=== PATIENT | male | born 2000 | race Two or more races ===

== ENCOUNTER 2021-03-17 15:50 | Emergency (ER) | payer MEDICAID ==
[~2021-03-17] VITALS: Ht 175.3 cm; Wt 108.9 kg
[2021-03-17 16:37] LABS: Basophils # (auto) 0.1 10 ^3/uL (0-0.2); Basophils % (auto) 0.7 % (0.0-2.0); Eosinophils # (auto) 0 10 ^3/uL (0-0.8); Eosinophils % (auto) 0.2 % (0.0-7.0); Hemoglobin 16.7 g/dL (13.5-17.5); Lymphocytes # (auto) 2.1 10 ^3/uL (0.4-5.4); Lymphocytes % (auto) 14.5 % (10.0-50.0); Mean Corpuscular Hemoglobin 28.7 pg (28.0-32.0); Mean Corpuscular Volume 84.5 fL (80.0-100.0); Monocytes # (auto) 0.6 10 ^3/uL (0-1.3); Neutrophils # (auto) 11.7 10 ^3/uL (1.6-8.6); Neutrophils % (auto) 80.6 % (37.0-80.0); Nucleated Red Blood Cells % 0.1 %; Red Cell Distribution Width 14.1 % (11.8-14.3); White Blood Cell 14.5 10^3/uL (4.4-10.8)
[2021-03-17] MEDS ORDERED: DexAMETHasone SOD PHOS 10MG/1ML VIAL INJ IV ONE (16:45)
[2021-03-17] MEDS ORDERED: cefTRIAXone 1GM/50ML D5W 50 ML IV ONE (16:45)
[2021-03-17 18:02] LABS: Albumin 4.8 g/dL (3.4-5.0); Anion Gap 8 (5-15); Blood Urea Nitrogen 6 mg/dL (7-18); Calcium 9.3 mg/dL (8.5-10.1); Carbon Dioxide 20 mmol/L (21-32); Chloride 111 mmol/L (98-107); Glucose 123 mg/dL (74-106); Potassium 3.7 mmol/L (3.5-5.1); Sodium 139 mmol/L (136-145)
[2021-03-17 18:10] LABS: Alanine Aminotransferase 117 U/L (16-61); Alkaline Phosphatase 101 U/L (45-117); Aspartate Aminotransferase 53 U/L (15-37); BUN/Creatinine Ratio 6.5; Bilirubin, Total 0.5 mg/dL (0.2-1.0); GFR African American 135 mL/min; GFR Non-African American 111 mL/min; Total Protein 8.4 g/dL (6.4-8.2)
[2021-03-17 19:39] LABS: Lactic Acid w/Reflex 2.9 mmol/L (0.4-2.0)
[2021-03-17 19:51] VITALS: BP 142/75
[2021-03-17 20:33] LABS: Urine Bacteria NONE SEEN /hpf (None Seen); Urine Blood Negative /uL (Negative); Urine Specific Gravity 1.026 (1.001-1.035); Urine WBC <1 /hpf (0 - 3)
== END 2021-03-17 20:43 | disposition admitted as inpatient to this hospital (09) ==
LOC: ER 15:50
DX: J18.9 Pneumonia, unspecified organism (principal); Z20.822 Contact with and (suspected) exposure to COVID-19
CPT/HCPCS: 36415; 71045; 80053; 81001; 82728; 83605; 84484; 85025; 85379; 86141; 87040; 87426; 93005; 99291

== ENCOUNTER 2022-05-19 09:37 | Emergency (ER) | payer MEDICAID ==
[~2022-05-19] VITALS: Ht 172.7 cm; Wt 115.0 kg
[2022-05-19 10:25] VITALS: BP 169/114
[2022-05-19] MEDS ORDERED: KETOROLAC TROMETH 60MG/2ML VIAL IM ONE (10:45)
[2022-05-19] MEDS ORDERED: IBUP800T26 PO (10:45)
== END 2022-05-19 10:46 | disposition home or self-care (01) ==
LOC: ER 09:37
DX: S20.213A Contusion of bilateral front wall of thorax, initial encounter (principal); W22.8XXA Striking against or struck by other objects, initial encounter; Y93.89 Activity, other specified; Y92.89 Other specified places as the place of occurrence of the external cause; Y99.8 Other external cause status
CPT/HCPCS: 71045

== ENCOUNTER 2024-05-10 14:30 | Inpatient (IN) | payer MEDICAID ==
[~2024-05-10] VITALS: Ht 172.7 cm; Wt 112.0 kg
[~2024-05-10 14:30] MED LIST: IBUP-1455 PO
--- NOTE | 2024-05-10 15:05 | ECG ---
[facility] Test Date: 2024-05-10 Test Time: 15:00:20 Pat Name: EDUARDO HEREDIA Department: ER Room: 0290 Gender: M Credit Collections Rep: ANGIE : 2000 Requested By: BETHEL MONZON Order Number: [id number] Reading MD: Dev Dunbar Measurements Intervals [place] Rate: 119 P: 88 SD: 156 QRS: 96 QRSD: 87 T: 2 QT: 338 QTc: 476 Interpretive Statements Sinus tachycardia Borderline right axis deviation ST elev, probable normal early repol pattern Borderline prolonged QT interval Electronically Signed On 05-12-2024 10:26:03 PST by Dev Dunbar Please click the below link to view image of tracing.
--- NOTE | 2024-05-10 15:18 | DVH ---
CHEST RADIOGRAPH Indication: CP Technique: Single frontal view of the chest was obtained Comparison: CHEST PORTABLE on DOS: 05/19/22, CXRP on DOS: 05/19/22 FINDINGS: Lines and Tubes: None Lungs: No focal consolidation. Pleura: No effusion.No pneumothorax. Cardiomediastinal contours: Unremarkable Pulmonary vasculature: Within normal limits. Bones: No acute osseous abnormality. IMPRESSION: 1. No acute cardiopulmonary disease. HS:Y
[2024-05-10 15:52] LABS: Basophils # (auto) 0.1 10 ^3/uL (0-0.2); Basophils % (auto) 0.6 % (0.0-2.0); Eosinophils # (auto) 0 10 ^3/uL (0-0.8); Eosinophils % (auto) 0.3 % (0.0-7.0); Hematocrit 51.7 % (41.0-53.0); Lymphocytes # (auto) 1.7 10 ^3/uL (0.4-5.4); Mean Corpuscular Hgb Conc. 32.9 g/dL (32.0-36.0); Mean Corpuscular Volume 88.2 fL (80.0-100.0); Monocytes # (auto) 0.6 10 ^3/uL (0-1.3); Monocytes % (auto) 5.1 % (0.0-12.0); Neutrophils # (auto) 10.4 10 ^3/uL (1.6-8.6); Nucleated Red Blood Cells % 0.1 %; Platelet Count (auto) 298 10^3/uL (140-450); Red Blood Cells 5.87 10^6/uL (4.5-5.90); Red Cell Distribution Width 14.2 % (11.8-14.3); White Blood Cell 12.8 10^3/uL (4.4-10.8)
[2024-05-10 16:06] LABS: Anion Gap 22.00001 (5-15); BUN/Creatinine Ratio 9.3 (10.0-20.0); Blood Urea Nitrogen 17 mg/dL (9-23); Calcium 10.2 mg/dL (8.7-10.4)
[2024-05-10 16:07] LABS: Total Protein 7.9 g/dL (5.7-8.2)
[2024-05-10 16:17] LABS: Urine Bacteria None Seen /hpf (None Seen)
[2024-05-10 16:22] LABS: Alanine Aminotransferase 96 U/L (7-40); Albumin 5.2 g/dL (3.2-4.8); Alkaline Phosphatase 176 U/L (46-116); Aspartate Aminotransferase 75 U/L (13-40); Chloride 90 mmol/L (98-107); Potassium 5.5 mmol/L (3.5-5.1); Sodium 122 mmol/L (136-145)
[2024-05-10] MEDS: INSULIN LANTUS (GLARGINE) 1 /0.01ml (100units/ml) SC ONE ×2 (16:30→19:15)
[2024-05-10] MEDS: ACCU-CHEK COMFORT CURVE STRIP VI SCH ×2 (16:30→19:30)
[2024-05-10] MEDS: SODIUM CHLORIDE 0.9% 1,000 ML IV ONE (16:30)
[2024-05-10] MEDS: INSULIN DRIP 100 UNIT/100ML 100 ML IV SCH ×2 (16:30→22:32)
[2024-05-10] MEDS ORDERED: DEXTROSE (50%) 50ML SYRG IV PRN ×2 (16:30→19:15)
[2024-05-10] MEDS: InsuLIN REG 1unit/0.01ml Soln (100units/ml) IV ONE (16:30)
[2024-05-10 16:34] LABS: Urine Blood Negative /uL (Negative); Urine Clarity Clear (Clear); Urine Color Colorless (Yellow); Urine Mucus FEW (None Seen); Urine Protein, UAD TRACE (Negative); Urine Specific Gravity 1.031 (1.001-1.035); Urine Urobilinogen Normal (Negative); Urine WBC <1 /hpf (0 - 3)
[2024-05-10 16:35] LABS: Carbon Dioxide < 10 mmol/L (20-31); Glucose 823 mg/dL (74-106)
--- NOTE | 2024-05-10 16:37 | ED.PDOC ---
History of Present Illness HPI Comments This is a 23-year-old male who comes in with chief complaint palpitations as well as some burning on his chest. The patient states that the symptoms have been going on for two weeks. He has never had a history of this in the past. He states that the pain is a 10/10. He has had an increased amount of thirst as well as urine output. The patient also has had some mild shortness for breath. He has no history of diabetes in the past but is experiencing some Kussmaul breathing. Chief Complaint: Chest Pain Time Seen by MD: 15:07 Primary Care Provider: NONE Reviewed Notes: Nurses Notes, Medications, Allergies (No allergies to medications) Allergies: Coded Allergies: NO KNOWN ALLERGIES (Unverified , 03/17/21) Home Meds Active Scripts Ibuprofen Micronized (Ibuprofen) 800 Mg Tab, 800 MG PO TIDP PRN, #30 TAB Prov:CHRIS WERNER PAC 05/19/22 Information Source: Patient Mode of Arrival: Ambulatory Severity: Moderate Timing: Weeks (Two weeks) Duration: Since onset Prehospital treatment: None Associated signs and symptoms Polyuria and polydipsia with burning in the chest Past Medical History PAST MEDICAL HISTORY: Denies Surgical History: Denies all surgeries Family History Family History: Reviewed,noncontributory to illness Social History Smoker: Non-Smoker Alcohol: Occasionally Drugs: Marijuana Lives In: Home Constitutional: denies: chills, diaphoresis, fatigue, fever, malaise, sweats, weakness, others EENTM: denies: blurred vision, double vision, ear bleeding, ear discharge, ear drainage, ear pain, ear ringing, eye pain, eye redness, hearing loss, mouth andree n, mouth swelling, nasal discharge, nose bleeding, nose congestion, nose pain, photophobia, tearing, throat pain, throat swelling, voice changes, others Respiratory: denies: cough, hemoptysis, orthopnea, SOB at rest, shortness of breath, SOB with excertion, stridor, wheezing, others Cardiovascular: reports: chest pain (Burning chest pain), palpitations; denies: dizzy spells, diaphoresis, Dyspnea on exertion, edema, irregular heart beat, left arm pain, lightheadedness, PND, syncope, others Gastrointestinal: reports: nausea, vomiting; denies: abdomen distended, abdominal pain, blood streaked bowels, constipated, diarrhea, dysphagia, difficulty swallowing, hematemesis, melena, poor appetite, poor fluid intake, rectal bleeding, rectal pain, others Genitourinary: denies: burning, dysuria, flank pain, frequency, hematuria, incontinence, penile discharge, penile sore, pain, testicle pain, testicle swelling, urgency, others Neurological: denies: dizziness, fainting, headache, left sided numbness, left sided weakness, numbness, paresthesia, pre-existing deficit, right sided numb ness, right sided weakness, seizure, speech problems, tingling, tremors, weakness, others Musculoskeletal: denies: back pain, gout, joint pain, joint swelling, muscle pain, muscle stiffness, neck pain, others Integumetry: denies: bruises, change in color, change in hair/nails, dryness, laceration, lesions, lumps, rash, wounds, others Allergic/Immunocompromised: denies: Difficulty Healing, Frequent Infections, Hives, Itching, others Hematologic/Lymphatic: denies: anemia, blood clots, easy bleeding, easy bruising, swollen glands, others Endocrine: reports: excessive thirst, excessive urination; denies: excessive hunger, excessive sweating, flushing, intolerance to cold, intolerance to heat, unexplained weight gain, unexplained weight loss, others Psychiatric: denies: anxiety, bipolar disorder, depression, hopeless, panic disorder, schizophrenia, sleepless, suicidal, others Physical Exam General Appearance: Mild Distress HEENT: Normal ENT Inspection, Pharynx Normal, TMs Normal Neck: Full Range of Motion, Non-Tender, Normal, Normal Inspection Respiratory: Chest Non-Tender, Lungs Clear, No Accessory Muscle Use, No Respira tory Distress, Normal Breath Sounds Cardiovascular: No Edema, No JVD, No Murmur, No Gallop, Tachycardia Breast Exam: Deferred Gastrointestinal: No Organomegaly, Non Tender, No Pulsatile Mass, Normal Bowel Sounds, Soft Genitalia: Deferred Pelvic: Deferred Rectal: Deferred Extremities: No calf tenderness, Normal capillary refill, Normal inspection, Normal range of motion, Non-tender, No pedal edema Musculoskeletal : Apperance: Normal Neurologic: Alert, high scaler II-XII nml as Tested, No Motor Deficits, Normal Affect, Normal Mood, No Sensory Deficits Cerebellar Function: Normal Reflexes: Normal Skin: Dry, Normal Color, Warm Lymphatic: No Adenopathy Was a procedure done? Was a procedure done?: No EKG EKG : Pulse Rate (adult): 119 [place]: Normal Cardiac Rhythm: ST Block: None ST: Nonsp Differential Dx Considerations may include: DKA, electrolyte imbalance, UTI, generalized weakness X-Ray, Labs, Meds, VS Vital Signs Date Time Temp Pulse Resp B/P (MAP) Pulse Ox O2 Delivery O2 Flow Rate FiO2 05/10/24 16:37 119 05/10/24 15:41 120 05/10/24 15:08 119 05/10/24 15:04 98.0 131 16 145/101 (116) 98 Lab Test 05/10/24 18:03 05/10/24 16:50 05/10/24 16:47 05/10/24 16:35 Range/Units POC Glucose 588 *H > 600 *H 70-106 mg/dl Blood Gas Specimen Type Arterial Blood Gas Sample Site Right radial Blood Gas Patient Temperature 37.0 Arterial Blood Date Drawn [id number] Arterial Blood pH 7.270 L 7.350-7.450 Arterial Blood Partial Pressure CO2 19.9 *L 35.0-48.0 mmHg Arterial Blood Partial Pressure O2 99.6 83.0-108.0 mmHg Arterial Blood HCO3 8.9 L 21.0-28.0 mmol/L Arterial Blood Oxygen Saturation 97.2 94.0-98.0 % Arterial Blood Base Excess -15.1 L -2.0-3.0 mmol/L Arterial Blood Oxyhemoglobin 96.1 94.0-98.0 % Arterial Blood Carboxyhemoglobin 0.4 L 0.5-1.5 % Arterial Blood Methemoglobin 0.7 0.0-1.5 % Sourav Test Yes Blood Gas Total Hemoglobin 18.00 H 13.5-17.5 g/dL Blood Gas Modality Room air FiO2 % 21.0 Blood Gas Critical Value Read Back Yes Blood Gas Notified Whom Dr. rena brown Blood Gas Notified Time [id number] Blood Gas Notified By Refinery Operator Reforming Unit kaushik askew Troponin I High Sensitivity < 3 L </=54 ng/L Test 05/10/24 16:15 05/10/24 15:30 Range/Units Urine Color Colorless Yellow Urine Clarity Clear Clear Urine pH 5.0 5.0-9.0 Urine Specific [place] 1.031 1.001-1.035 Urine Protein Trace H Negative Urine Ketones 4+ H Negative Urine Blood Negative Negative /uL Urine Nitrite Negative Negative Urine Bilirubin Negative Negative Urine Urobilinogen Normal Negative mg/dL Urine Leukocyte Esterase Negative Negative /uL Urine RBC None seen 0 - 3 /hpf Urine WBC <1 0 - 3 /hpf Urine Squamous Epithelial Cells None seen <5 /hpf Urine Bacteria None seen None Seen /hpf Urine Mucus Few None Seen Urine Glucose 4+ H Normal mg/dL White Blood Count 12.8 H 4.4-10.8 10^3/uL Red Blood Count 5.87 4.5-5.90 10^6/uL Hemoglobin 17.0 13.5-17.5 g/dL Hematocrit 51.7 41.0-53.0 % Mean Corpuscular Volume 88.2 80.0-100.0 fL Mean Corpuscular Hemoglobin 29.0 28.0-32.0 pg Mean Corpuscular Hemoglobin Concent 32.9 32.0-36.0 g/dL Red Cell Distribution Width 14.2 11.8-14.3 % Platelet Count 298 140-450 10^3/uL Mean Platelet Volume 10.8 6.9-10.8 fL Neutrophils (%) (Auto) 81.0 H 37.0-80.0 % Lymphocytes (%) (Auto) 13.0 10.0-50.0 % Monocytes (%) (Auto) 5.1 0.0-12.0 % Eosinophils (%) (Auto) 0.3 0.0-7.0 % Basophils (%) (Auto) 0.6 0.0-2.0 % Neutrophils # (Auto) 10.4 H 1.6-8.6 10 ^3/uL Lymphocytes # (Auto) 1.7 0.4-5.4 10 ^3/uL Monocytes # (Auto) 0.6 0-1.3 10 ^3/uL Eosinophils # (Auto) 0 0-0.8 10 ^3/uL Basophils # (Auto) 0.1 0-0.2 10 ^3/uL Nucleated Red Blood Cells 0.1 % Sodium Level 122 L 136-145 mmol/L Potassium Level 5.5 H 3.5-5.1 mmol/L Chloride Level 90 L 98-107 mmol/L Carbon Dioxide Level < 10 *L 20-31 mmol/L Anion Gap 22.35534 H 5-15 Blood Urea Nitrogen 17 9-23 mg/dL Creatinine 1.82 H 0.700-1.30 mg/dL Glomerular Filtration Rate Calc 53 >90 mL/min BUN/Creatinine Ratio 9.3 L 10.0-20.0 Serum Glucose 823 *H 74-106 mg/dL Calcium Level 10.2 8.7-10.4 mg/dL Total Bilirubin 1.0 0.2-1.0 mg/dL Aspartate Amino Transferase (AST) 75 H 13-40 U/L Alanine Aminotransferase (ALT) 96 H 7-40 U/L Alkaline Phosphatase 176 H 46-116 U/L Troponin I High Sensitivity < 3 L </=54 ng/L Total Protein 7.9 5.7-8.2 g/dL Albumin 5.2 H 3.2-4.8 g/dL CHEST RADIOGRAPH IMPRESSION: 1. No acute cardiopulmonary disease. The chemistry panel shows a potassium of 5.5 The CO2 level is less than 10 The anion gap is elevated at 22 The serum glucose is 823 The troponin levels negative The patient states that he has never had diabetes in the past We consider this as new onset diabetic ketoacidosis. The urine test is positive for 4+ glucose and 4+ ketones We did an ABG which shows a pH of 7.27/pCO2 of 19 The patient was started on an insulin drip The patient was given 1 L bolus of normal saline The patient was given insulin 5 units IV push The patient is being admitted with a diagnosis of the diabetic ketoacidosis We have discussed the findings with the patient Critical care management involved bedside management as well as interpretation of labs and imaging studies It also involved decision making as it pertained to the patient is being admitted to the ICU with DKA The CBC shows an elevated white blood cell count of 12.8 which also could be consistent with the vomiting Images Reviewed?: Images reviewed and evaluated by me Time of 1ST Reevaluation: 16:37 Reevaluation 1ST: Unchanged Patient Education/Counseling: Diagnosis, Treatment, Prognosis Family Education/Counseling: No Family Present Departure 1 Departure Time of Disposition: 18:30 Impression: Primary Impression: Diabetic ketoacidosis Qualified Codes: E13.10 - Other specified diabetes mellitus with ketoacidosis without coma Disposition: ADMITTED INPATIENT Admit to: ICU Condition: Guarded Critical Care Note Critical Care Time?: Yes (1 hr-critical care time only) Stability Stability form required: Yes Unstable for transfer: Telemetry monitoring (Telemetry monitoring required), ED Physician Assesment (Clinical assesment) Heart Score Heart Score: Heart Score Response (Comments) Value History N/A 0 EKG N/A 0 Age N/A 0 Risk Factors N/A 0 Troponin N/A 0 Total 0 I personally scribed for SARITA BROWN MD ([email or web address]) on 05/10/24 at 16:47. Electronically submitted by Pamela Cabrera ([email or web address]). SARITA BROWN MD May 10, 2024 16:37
[2024-05-10 16:58] LABS: Base Excess -15.1 mmol/L (-2.0-3.0)
[2024-05-10 17:00] VITALS: PULSE 123; RESP 23; O2SAT 98
[2024-05-10] MEDS ORDERED: ONDANSETRON HCL 4 MG/2 ML VIAL IV PRN (19:15)
[2024-05-10] MEDS ORDERED: NITROGLYCERIN 0.4 MG SL TAB SL PRN (19:15)
[2024-05-10] MEDS ORDERED: MORPHINE SULFATE INJ 2 MG/ml SYRG IV PRN (19:15)
[2024-05-10 19:35] VITALS: PULSE 116; RESP 21; O2SAT 98
--- NOTE | 2024-05-10 21:46 | DVHHP2 ---
History of Present Illness Reason for Visit: Palpitations History of Present Illness 23-year-old male with no previous medical problems presents for evaluation of palpitations shortness for breath. Patient reports symptoms ongoing intermittently for the past two weeks. He states that today symptoms were more constant associated polydipsia polyuria. He also reports fatigue and generalized weakness. no Other acute complaints reported. Past Medical History Denies Past Surgical History Denies Family History Noncontributory Smoke: No ALCOHOL: occassional Drugs: Marijuana Lives: with Family Review of Systems Review of Systems Review of systems are currently negative otherwise addressed in HPI Allergies: Coded Allergies: NO KNOWN ALLERGIES (Unverified , 03/17/21) Medications Current Medications Medications Dose Ordered Sig/Quynh Route Start Time Stop Time Status Last Admin Dose Admin Insulin Human (Reg)/Sodium Chloride 100 ml @ 0.5 mls/hr Q24H IV 05/10/24 16:30 05/10/24 16:30 6 MLS/HR Diagnostic Test (Pha) 1 strip Q90MIN 05/10/24 16:30 05/10/24 20:58 1 STRIP Dextrose 50 ml PRN PRN IV 05/10/24 16:30 Insulin Glargine 15 units DAILY SC 05/11/24 10:00 Sodium Chloride 1,000 ml @ 250 mls/hr Q4H IV 05/10/24 23:15 05/11/24 01:14 UNV Sodium Chloride 1,000 ml @ 150 mls/hr Q6H40M IV 05/11/24 01:15 UNV Insulin Human (Reg)/Sodium Chloride 100 ml @ 0.5 mls/hr Q24H IV 05/10/24 19:15 UNV Dextrose 50 ml UD PRN IV 05/10/24 19:15 UNV Diagnostic Test (Pha) 1 strip Q90MIN 05/10/24 19:30 UNV Insulin Glargine 15 units DAILY SC 05/11/24 10:00 UNV Temazepam 15 mg QHSP PRN PO 05/10/24 19:15 UNV Ondansetron HCl 4 mg Q4HP PRN IV 05/10/24 19:15 UNV Nitroglycerin 0.4 mg Q5MINP PRN SL 05/10/24 19:15 UNV Morphine Sulfate 2 mg Q30M PRN IV 05/10/24 19:15 UNV Exam Vital Signs Vital Signs Date Time Temp Pulse Resp B/P (MAP) Pulse Ox O2 Delivery O2 Flow Rate FiO2 05/10/24 20:01 121 23 129/98 (108) 96 05/10/24 19:35 Nasal Cannula* 2 28 05/10/24 16:58 97.9 97.9 Exam Gen: 23-year-old male in mild distress, obese Skin: Warm, dry, normal color and texture, no rash. HEENT: Normocephalic atraumatic, mucous membranes moist and pink. Neck: Cervical and supraclavicular nodes normal without enlargement, trachea is midline, thyroid gland is normal without masses. Pulmonary: Clear to auscultation and percussion bilaterally. Cardiac: Tachycardia Abdomen: Soft, nontender, nondistended, bowel sounds present all 4 quadrants, no guarding, no rigidity, no organomegaly. Extremities: No cyanosis, clubbing, no edema Neuro: Cranial nerves II through XII grossly intact, normal affect and speech, no focal motor deficits. Labs/Xrays ORDERING PHYSICIAN: BETHEL MONZON MD PROCEDURE(s): CXRP - CHEST PORTABLE REASON: CP ORDER NUMBER(s): [id number], ACCESSION NUMBER(s): [id number] CHEST RADIOGRAPH Indication: CP Technique: Single frontal view of the chest was obtained Comparison: CHEST PORTABLE on DOS: 05/19/22, CXRP on DOS: 05/19/22 FINDINGS: Lines and Tubes: None Lungs: No focal consolidation. Pleura: No effusion.No pneumothorax. Cardiomediastinal contours: Unremarkable Pulmonary vasculature: Within normal limits. Bones: No acute osseous abnormality. IMPRESSION: 1. No acute cardiopulmonary disease. HS:Y Labs Test 05/10/24 19:24 05/10/24 18:25 05/10/24 16:50 05/10/24 16:15 Range/Units POC Glucose 528 *H 70-106 mg/dl Troponin I High Sensitivity < 3 L </=54 ng/L Blood Gas Specimen Type Arterial Blood Gas Sample Site Right radial Blood Gas Patient Temperature 37.0 Arterial Blood Date Drawn [id number] Arterial Blood pH 7.270 L 7.350-7.450 Arterial Blood Partial Pressure CO2 19.9 *L 35.0-48.0 mmHg Arterial Blood Partial Pressure O2 99.6 83.0-108.0 mmHg Arterial Blood HCO3 8.9 L 21.0-28.0 mmol/L Arterial Blood Oxygen Saturation 97.2 94.0-98.0 % Arterial Blood Base Excess -15.1 L -2.0-3.0 mmol/L Arterial Blood Oxyhemoglobin 96.1 94.0-98.0 % Arterial Blood Carboxyhemoglobin 0.4 L 0.5-1.5 % Arterial Blood Methemoglobin 0.7 0.0-1.5 % Sourav Test Yes Blood Gas Total Hemoglobin 18.00 H 13.5-17.5 g/dL Blood Gas Modality Room air FiO2 % 21.0 Blood Gas Critical Value Read Back Yes Blood Gas Notified Whom Dr. rena cook Blood Gas Notified Time [id number] Blood Gas Notified By Continuous Weld Pipe Mill Supervisor kaushik jamilah Urine Color Colorless Yellow Urine Clarity Clear Clear Urine pH 5.0 5.0-9.0 Urine Specific [place] 1.031 1.001-1.035 Urine Protein Trace H Negative Urine Ketones 4+ H Negative Urine Blood Negative Negative /uL Urine Nitrite Negative Negative Urine Bilirubin Negative Negative Urine Urobilinogen Normal Negative mg/dL Urine Leukocyte Esterase Negative Negative /uL Urine RBC None seen 0 - 3 /hpf Urine WBC <1 0 - 3 /hpf Urine Squamous Epithelial Cells None seen <5 /hpf Urine Bacteria None seen None Seen /hpf Urine Mucus Few None Seen Urine Glucose 4+ H Normal mg/dL Test 05/10/24 15:30 Range/Units White Blood Count 12.8 H 4.4-10.8 10^3/uL Red Blood Count 5.87 4.5-5.90 10^6/uL Hemoglobin 17.0 13.5-17.5 g/dL Hematocrit 51.7 41.0-53.0 % Mean Corpuscular Volume 88.2 80.0-100.0 fL Mean Corpuscular Hemoglobin 29.0 28.0-32.0 pg Mean Corpuscular Hemoglobin Concent 32.9 32.0-36.0 g/dL Red Cell Distribution Width 14.2 11.8-14.3 % Platelet Count 298 140-450 10^3/uL Mean Platelet Volume 10.8 6.9-10.8 fL Neutrophils (%) (Auto) 81.0 H 37.0-80.0 % Lymphocytes (%) (Auto) 13.0 10.0-50.0 % Monocytes (%) (Auto) 5.1 0.0-12.0 % Eosinophils (%) (Auto) 0.3 0.0-7.0 % Basophils (%) (Auto) 0.6 0.0-2.0 % Neutrophils # (Auto) 10.4 H 1.6-8.6 10 ^3/uL Lymphocytes # (Auto) 1.7 0.4-5.4 10 ^3/uL Monocytes # (Auto) 0.6 0-1.3 10 ^3/uL Eosinophils # (Auto) 0 0-0.8 10 ^3/uL Basophils # (Auto) 0.1 0-0.2 10 ^3/uL Nucleated Red Blood Cells 0.1 % Sodium Level 122 L 136-145 mmol/L Potassium Level 5.5 H 3.5-5.1 mmol/L Chloride Level 90 L 98-107 mmol/L Carbon Dioxide Level < 10 *L 20-31 mmol/L Anion Gap 22.78705 H 5-15 Blood Urea Nitrogen 17 9-23 mg/dL Creatinine 1.82 H 0.700-1.30 mg/dL Glomerular Filtration Rate Calc 53 >90 mL/min BUN/Creatinine Ratio 9.3 L 10.0-20.0 Serum Glucose 823 *H 74-106 mg/dL Serum Osmolality 327 H 278-298 mOsm/kg Calcium Level 10.2 8.7-10.4 mg/dL Total Bilirubin 1.0 0.2-1.0 mg/dL Aspartate Amino Transferase (AST) 75 H 13-40 U/L Alanine Aminotransferase (ALT) 96 H 7-40 U/L Alkaline Phosphatase 176 H 46-116 U/L Total Protein 7.9 5.7-8.2 g/dL Albumin 5.2 H 3.2-4.8 g/dL Beta-Hydroxybutyric Acid > 4.500 H < 0.4 mmol/L Assessment/Plan Assessment/Plan Assessment Diabetic ketoacidosis Dehydration Acute kidney injury Plan Admit the patient to [facility] to the hospitalist DKA protocol Continue treatment per orders Total critical care time excluding procedures performed this 50 minutes. Plan discussed with: Patient My Orders Orders - CODIE KING AGACNP Procedure Category Date Status Time Sodium Chloride 0.9% PHA 05/10/24 Logged 23:15 Sodium Chloride 0.9% PHA 05/11/24 Logged 01:15 Insulin Drip 100 PHA 05/10/24 Logged Unit/100ml (Myxredlin 19:15 Dextrose 50% Syringe PHA 05/10/24 Logged 19:15 Glucose Blood PHA 05/10/24 Logged (Accu-Chek Comfort 19:30 Basic Metabolic Panel LAB 05/11/24 Verified 01:14 Basic Metabolic Panel LAB 05/11/24 Verified 07:14 Basic Metabolic Panel LAB 05/11/24 Verified 13:14 Neurological TOMMIE 05/10/24 In Process Assessment 19:14 Vs/Hemodynamics TOMMIE 05/10/24 In Process 19:14 Insulin Lantus PHA 05/10/24 Logged (Glargine) (Lantus) 19:15 Insulin Lantus PHA 05/11/24 Logged (Glargine) (Lantus) 10:00 Admit ADMIT 05/10/24 Transmitted 19:14 Temazepam (Restoril) PHA 05/10/24 Logged 19:15 Ondansetron Hcl [facility] 05/10/24 Logged (Zofran) 19:15 Complete Blood Count LAB 05/11/24 Verified 04:00 Comprehensive LAB 05/11/24 Verified Metabolic Panel 04:00 Npo (Nothing By DIET 05/11/24 Transmitted Mouth) Diet Breakfast Condition: Critical [facility] 05/10/24 In Process 19:14 Bedrest With Bathroom [facility] 05/10/24 In Process Privileg 19:14 Nitroglycerin [facility] 05/10/24 Logged Sublingual (Ntrostat 19:15 Morphine Sulfate [facility] 05/10/24 Logged Injection 19:15 Stat Ekg For Chest [facility] 05/10/24 In Process Pain 19:14 Notify Md Of Changes [facility] 05/10/24 In Process From Base 19:14 [place] [address] [facility] 05/10/24 In Process 24 Hours 19:[address] [facility] 05/10/24 In Process Protocol 19:14 Rhythm Strips Once [facility] 05/10/24 In Process Every Shift 19:14 Oxygen By Nasal RT 05/10/24 Transmitted Cannula 19:14 *Rn Superintendent Greens REFER 05/10/24 Verified Referral 21:43 Date of Service: May 10, 2024 Billing Provider: CODIE KING Common Visit Codes: [id number] CARE 30-74 MIN CODIE KING May 10, 2024 21:46
[2024-05-10] MEDS: TEMAZEPAM 15 MG CAP PO PRN (22:26)
[2024-05-10] MEDS: SODIUM CHLORIDE 0.9% 1,000 ML IV SCH (23:15)
[2024-05-11 01:35] LABS: Chloride 104 mmol/L (98-107); Potassium 3.6 mmol/L (3.5-5.1); Sodium 138 mmol/L (136-145)
[2024-05-11 01:36] LABS: Anion Gap 18 (5-15); Calcium 9.6 mg/dL (8.7-10.4)
[2024-05-11 01:42] LABS: Carbon Dioxide 16 mmol/L (20-31); Glucose 194 mg/dL (74-106)
[2024-05-11 02:00] VITALS: PULSE 104; RESP 20; O2SAT 96
[2024-05-11 02:08] LABS: BUN/Creatinine Ratio 8.1 (10.0-20.0); Blood Urea Nitrogen 10 mg/dL (9-23)
[2024-05-11] MEDS: SODIUM CHLORIDE 0.9% 1,000 ML IV SCH (02:52)
[2024-05-11 05:57] LABS: Albumin 4.2 g/dL (3.2-4.8); Anion Gap 14 (5-15); Blood Urea Nitrogen 9 mg/dL (9-23); Calcium 9.2 mg/dL (8.7-10.4); Chloride 105 mmol/L (98-107); Potassium 3.9 mmol/L (3.5-5.1); Sodium 137 mmol/L (136-145)
[2024-05-11 05:58] LABS: Basophils # (auto) 0.1 10 ^3/uL (0-0.2); Basophils % (auto) 0.6 % (0.0-2.0); Bilirubin, Total 0.6 mg/dL (0.2-1.0); Eosinophils # (auto) 0.2 10 ^3/uL (0-0.8); Hematocrit 42.1 % (41.0-53.0); Hemoglobin 14.6 g/dL (13.5-17.5); Lymphocytes # (auto) 3.3 10 ^3/uL (0.4-5.4); Lymphocytes % (auto) 33.5 % (10.0-50.0); Mean Corpuscular Hemoglobin 29.8 pg (28.0-32.0); Mean Corpuscular Hgb Conc. 34.6 g/dL (32.0-36.0); Mean Corpuscular Volume 86.1 fL (80.0-100.0); Monocytes # (auto) 0.6 10 ^3/uL (0-1.3); Neutrophils # (auto) 5.6 10 ^3/uL (1.6-8.6); Neutrophils % (auto) 57.9 % (37.0-80.0); Platelet Count (auto) 218 10^3/uL (140-450); Red Blood Cells 4.89 10^6/uL (4.5-5.90); Red Cell Distribution Width 14.2 % (11.8-14.3); Total Protein 6.6 g/dL (5.7-8.2); White Blood Cell 9.7 10^3/uL (4.4-10.8)
[2024-05-11 06:00] LABS: Alanine Aminotransferase 73 U/L (7-40); Alkaline Phosphatase 124 U/L (46-116); Aspartate Aminotransferase 56 U/L (13-40); Carbon Dioxide 18 mmol/L (20-31); Glucose 238 mg/dL (74-106)
[2024-05-11 07:30] VITALS: PULSE 96; RESP 21; O2SAT 97
--- NOTE | 2024-05-11 07:51 | ECG ---
[facility] Test Date: 2024-05-10 Test Time: 15:41:55 Pat Name: EDUARDO HEREDIA Department: ER Room: 0290 Gender: M Sales Floor Team Member: KATELYN : 2000 Requested By: BETHEL MONZON Order Number: [id number] Reading MD: Dev Dunbar Measurements Intervals [place] Rate: 120 P: 89 TX: 153 QRS: 112 QRSD: 89 T: -6 QT: 290 QTc: 410 Interpretive Statements Sinus tachycardia Electronically Signed On 05-12-2024 10:26:52 PST by Dev Dunbar Please click the below link to view image of tracing.
[2024-05-11] MEDS ORDERED: INSULIN LANTUS (GLARGINE) 1 /0.01ml (100units/ml) SC SCH (10:00)
[2024-05-11] MEDS: INSULIN LANTUS (GLARGINE) 1 /0.01ml (100units/ml) SC SCH (10:49)
[2024-05-11] MEDS ORDERED: DEXTROSE (50%) 50ML SYRG IV PRN (12:15)
[2024-05-11 12:41] LABS: Anion Gap 12 (5-15); Potassium 3.6 mmol/L (3.5-5.1); Sodium 137 mmol/L (136-145)
[2024-05-11 12:43] LABS: LDL Cholesterol 29 mg/dL (< 100)
[2024-05-11 12:44] LABS: Cholesterol 112 mg/dL (< 200)
[2024-05-11 12:47] LABS: BUN/Creatinine Ratio 6.1 (10.0-20.0)
[2024-05-11 12:49] LABS: HDL Cholesterol 22 mg/dL (40-59); Triglycerides 396 mg/dL (< 150)
[2024-05-11 12:53] LABS: Blood Urea Nitrogen 7 mg/dL (9-23); Carbon Dioxide 16 mmol/L (20-31); Chloride 109 mmol/L (98-107); Glucose 237 mg/dL (74-106)
--- NOTE | 2024-05-11 13:39 | DVHPN2 ---
Subjective Patient reports that his nausea and vomiting has resolved. Reviewed: Care Plan, H&P, Labs, Medications, Previous Orders Changes from previous H/P or p: No Changes General: Per HPI Objective Vitals Vital Signs Date Time Temp Pulse Resp B/P (MAP) Pulse Ox O2 Delivery O2 Flow Rate FiO2 05/11/24 12:00 92 18 108/89 (95) 97 05/11/24 10:00 98.3 98.3 05/11/24 07:30 Room Air* 0 21 Intake/Output Intake and Output 05/11/24 07:00 Intake Total 2034 ml Output Total 850 ml Balance 1184 ml Intake IV Total 2034 ml Output Urine Total 850 ml General Appearance: Alert, Oriented X3, Cooperative, No acute distress, Other (Obese) HEENT: Atraumatic, PERRLA Neck: Carotid [place] Lungs: Clear to auscultation, Normal air movement Cardiovascular: Normal S1, Normal S2 Abdomen: Normal bowel sounds Musculoskeletal: Normal sensory function, Normal motor function Neuro: Normal gait, Normal speech Psych/Mental Status: Mental status NL, Mood NL Medications Current Medications Medications Dose Ordered Sig/Quynh Route Start Time Stop Time Status Last Admin Dose Admin Insulin Glargine 15 units DAILY SC 05/11/24 10:00 05/11/24 10:49 15 UNITS Temazepam 15 mg QHSP PRN PO 05/10/24 19:15 05/10/24 22:26 15 MG Ondansetron HCl 4 mg Q4HP PRN IV 05/10/24 19:15 Nitroglycerin 0.4 mg Q5MINP PRN SL 05/10/24 19:15 Morphine Sulfate 2 mg Q30M PRN IV 05/10/24 19:15 Diagnostic Test (Pha) 1 strip IQ4HR 05/11/24 16:00 Insulin Human Regular IQ4HR SC 05/11/24 16:00 Dextrose 50 ml UD PRN IV 05/11/24 12:15 Laboratory Results Laboratory Tests 05/11/24 04:15 05/11/24 12:09 Chemistry Test 05/10/24 15:30 05/11/24 01:14 05/11/24 04:15 05/11/24 12:09 Albumin 5.2 g/dL (3.2-4.8) H 4.2 g/dL (3.2-4.8) Calcium Level 10.2 mg/dL (8.7-10.4) 9.6 mg/dL (8.7-10.4) 9.2 mg/dL (8.7-10.4) 9.0 mg/dL (8.7-10.4) Total Protein 7.9 g/dL (5.7-8.2) 6.6 g/dL (5.7-8.2) Lipid panel Test 05/11/24 04:15 Cholesterol Level 112 mg/dL (< 200) HDL Cholesterol 22 mg/dL (40-59) L Triglycerides Level 396 mg/dL (< 150) H LFT Test 05/10/24 15:30 05/11/24 04:15 Alanine Aminotransferase (ALT) 96 U/L (7-40) H 73 U/L (7-40) H Alkaline Phosphatase 176 U/L (46-116) H 124 U/L (46-116) H Aspartate Amino Transferase (AST) 75 U/L (13-40) H 56 U/L (13-40) H Total Bilirubin 1.0 mg/dL (0.2-1.0) 0.6 mg/dL (0.2-1.0) HgA1c, TSH Test 05/11/24 04:15 Hemoglobin A1c > 14.0 % A1C (<5.7) H Urinalysis Test 05/10/24 16:15 Urine Color Colorless (Yellow) Urine Clarity Clear (Clear) Urine pH 5.0 (5.0-9.0) Urine Specific [place] 1.031 (1.001-1.035) Urine Protein Trace (Negative) H Urine Ketones 4+ (Negative) H Urine Blood Negative /uL (Negative) Urine Nitrite Negative (Negative) Urine Bilirubin Negative (Negative) Urine Urobilinogen Normal mg/dL (Negative) Urine Leukocyte Esterase Negative /uL (Negative) Urine RBC None seen /hpf (0 - 3) Urine WBC <1 /hpf (0 - 3) Urine Squamous Epithelial Cells None seen /hpf (<5) Urine Bacteria None seen /hpf (None Seen) Urine Mucus Few (None Seen) Urine Glucose 4+ mg/dL (Normal) H Blood Gas Results Test 05/10/24 16:50 Arterial Blood pH 7.270 (7.350-7.450) FiO2 % 21.0 Labs and/or images reviewed: Labs reviewed by me, Image(s) reviewed by me Assessment/Plan Assessment/Plan Impression: -diabetic ketoacidosis -diabetes mellitus, new diagnosis -obesity -sirs response, no organ dysfunction -acute kidney injury, probable vasomotor nephropathy -hyperkalemia Plan: -anion gap closed. Tachycardia resolved. Nausea and vomiting resolved. -stop insulin drip, start q.4 sliding scale coverage with Lantus 15 units q.h.s. -start consistent carbohydrate diet -continue IV hydration -dietary consultation -serial BMP -transfer to Medical/Surgical unit Total time spent with patient discussing and formulating plan of care: 35 minutes. This medical document was created using an electronic medical record system with [employer] dictation system. Although this document has been carefully reviewed, there may still be some phonetic and typographical errors. These areas are purely typographical due to imperfections of the software programs, and do not reflect any compromise in the patient's medical care. Plan discussed with: Patient, Other (RN) My Orders Orders - JOSE D SANTIAGO NP Procedure Category Date Status Time Consistent DIET 05/11/24 Transmitted Carb(Ccho)Diabetes Lunch Glucose Blood PHA 05/11/24 In Process (Accu-Chek Comfort 16:00 Insulin R (Human) PHA 05/11/24 In Process (Insulin R) 16:00 Dextrose 50% Syringe PHA 05/11/24 In Process 12:15 *Rn Neurology Physician REFER 05/11/24 Transmitted Referral 12:04 * Dietary Consult CONS 05/11/24 Transmitted 12:04 Transfer Orders XFER 05/11/24 Transmitted 12:08 Date of Service: May 11, 2024 Billing Provider: JOSE D SANTIAGO NP Common Visit Codes: [id number] INP/OBS CARE(HIGH) OJSE D SANTIAGO NP May 11, 2024 13:39
[2024-05-11 15:38] VITALS: BP 111/75; PULSE 95; RESP 20; TEMP 97.9; O2SAT 98
[2024-05-11 15:40] VITALS: BP 111/75; PULSE 98; RESP 20; TEMP 97.6; O2SAT 98
[2024-05-11] MEDS: ACCU-CHEK COMFORT CURVE STRIP VI SCH (16:00)
[2024-05-11] MEDS: InsuLIN REG 1unit/0.01ml Soln (100units/ml) SC SCH (16:00)
[2024-05-11 20:00] VITALS: PULSE 104; RESP 19; O2SAT 96
[2024-05-11 21:12] VITALS: BP 109/56; PULSE 104; RESP 19; TEMP 97.8; O2SAT 96
[2024-05-12] VITALS (7 sets, daily range): BP systolic 103–137; BP diastolic 50–92; PULSE 87–110; RESP 16–19; TEMP 97.6–98.9; O2SAT 92–98
[2024-05-12] MEDS: ACCU-CHEK COMFORT CURVE STRIP VI SCH (05:05)
[2024-05-12] MEDS: InsuLIN REG 1unit/0.01ml Soln (100units/ml) SC SCH (05:07)
[2024-05-12] MEDS: INSULIN LANTUS (GLARGINE) 1 /0.01ml (100units/ml) SC SCH (10:30)
[2024-05-12] MEDS: SODIUM CHLORIDE 0.9% 1,000 ML IV ONE (10:30)
--- NOTE | 2024-05-12 11:35 | DVHPN2 ---
Subjective Patient denies any symptoms. Reviewed: Care Plan, H&P, Labs, Medications, Previous Orders Changes from previous H/P or p: No Changes General: Per HPI Objective Vitals Vital Signs Date Time Temp Pulse Resp B/P (MAP) Pulse Ox O2 Delivery O2 Flow Rate FiO2 05/12/24 08:54 97.6 87 16 114/50 (71) 98 97.6 05/11/24 20:00 Room Air* 0 21 Intake/Output Intake and Output 05/12/24 07:00 Intake Total 900 ml Balance 900 ml Intake Oral 900 ml # Voids 3 General Appearance: Alert, Oriented X3, Cooperative, No acute distress, Other (Obese) HEENT: Atraumatic, PERRLA Neck: Carotid [place] Lungs: Clear to auscultation, Normal air movement Cardiovascular: Normal S1, Normal S2 Abdomen: Normal bowel sounds Musculoskeletal: Normal sensory function, Normal motor function Neuro: Normal gait, Normal speech Psych/Mental Status: Mental status NL, Mood NL Medications Current Medications Medications Dose Ordered Sig/Quynh Route Start Time Stop Time Status Last Admin Dose Admin Temazepam 15 mg QHSP PRN PO 05/10/24 19:15 05/10/24 22:26 15 MG Ondansetron HCl 4 mg Q4HP PRN IV 05/10/24 19:15 Nitroglycerin 0.4 mg Q5MINP PRN SL 05/10/24 19:15 Morphine Sulfate 2 mg Q30M PRN IV 05/10/24 19:15 Dextrose 50 ml UD PRN IV 05/11/24 12:15 Diagnostic Test (Pha) 1 strip IQ4HR 05/12/24 04:00 05/12/24 07:39 1 STRIP Insulin Human Regular IQ4HR SC 05/12/24 04:00 05/12/24 07:40 8 UNITS Insulin Glargine 20 units DAILY SC 05/12/24 10:00 05/12/24 10:30 20 UNITS Laboratory Results Laboratory Tests 05/11/24 04:15 05/11/24 12:09 Chemistry Test 05/11/24 12:09 Calcium Level 9.0 mg/dL (8.7-10.4) Urinalysis Test 05/10/24 16:15 Urine Color Colorless (Yellow) Urine Clarity Clear (Clear) Urine pH 5.0 (5.0-9.0) Urine Specific [place] 1.031 (1.001-1.035) Urine Protein Trace (Negative) H Urine Ketones 4+ (Negative) H Urine Blood Negative /uL (Negative) Urine Nitrite Negative (Negative) Urine Bilirubin Negative (Negative) Urine Urobilinogen Normal mg/dL (Negative) Urine Leukocyte Esterase Negative /uL (Negative) Urine RBC None seen /hpf (0 - 3) Urine WBC <1 /hpf (0 - 3) Urine Squamous Epithelial Cells None seen /hpf (<5) Urine Bacteria None seen /hpf (None Seen) Urine Mucus Few (None Seen) Urine Glucose 4+ mg/dL (Normal) H Labs and/or images reviewed: Labs reviewed by me, Image(s) reviewed by me Assessment/Plan Assessment/Plan Impression: -diabetic ketoacidosis -diabetes mellitus, new diagnosis -obesity -sirs response, no organ dysfunction -acute kidney injury, probable vasomotor nephropathy -hyperkalemia Plan: -events: Lipid panel noted. Patient with severe hypertriglyceridemia. Patient was blood sugars also uncontrolled over the past 24 hours. -continue q.4 hours sliding scale coverage with aggressive scale. Increase Lantus to 20 units daily. -start consistent carbohydrate diet -normal saline at 100 mL/hr x1 L -dietary consultation -reassess for discharge tomorrow once blood sugars have improved. -start atorvastatin 40 mg p.o. q.h.s. -dietary consultation still pending Total time spent with patient discussing and formulating plan of care: 35 minutes. This medical document was created using an electronic medical record system with [employer] dictation system. Although this document has been carefully reviewed, there may still be some phonetic and typographical errors. These areas are purely typographical due to imperfections of the software programs, and do not reflect any compromise in the patient's medical care. Plan discussed with: Patient, Other (RN) My Orders Orders - JOSE D SANTIAGO NP Procedure Category Date Status Time Consistent DIET 05/11/24 Transmitted Carb(Ccho)Diabetes Lunch Dextrose 50% Syringe PHA 05/11/24 In Process 12:15 *Rn Supervisor Histology REFER 05/11/24 Transmitted Referral 12:04 * Dietary Consult CONS 05/11/24 Transmitted 12:04 Insulin Lantus PHA 05/12/24 In Process (Glargine) (Lantus) 10:00 Sodium Chloride 0.9% PHA 05/12/24 In Process 09:15 Atorvastatin (Lipitor) PHA 05/12/24 Transmitted 22:00 Date of Service: May 12, 2024 Billing Provider: JOSE D SANTIAGO NP Common Visit Codes: [id number] INP/OBS CARE(HIGH) JOSE D SANTIAGO NP May 12, 2024 11:35
[2024-05-12] MEDS: ATORVASTATIN 20 MG TAB PO SCH (20:57)
[2024-05-13 01:00] VITALS: BP_SYST 132; BP_SYST 138; BP_DIAS 77; BP_DIAS 92; PULSE 96; PULSE 98; RESP 19; TEMP 97.6; TEMP 98.2; O2SAT 98; O2SAT 99
[2024-05-13 05:00] VITALS: BP 144/83; PULSE 97; RESP 19; TEMP 97.9; O2SAT 98
[2024-05-13 09:00] VITALS: BP 139/82; PULSE 92; RESP 18; TEMP 97.7; O2SAT 100
[2024-05-13 13:00] VITALS: BP 129/90; PULSE 105; RESP 18; TEMP 97.6; O2SAT 96
[2024-05-13 20:00] VITALS: PULSE 98; RESP 18; O2SAT 99
[2024-05-13 21:00] VITALS: BP 127/88; PULSE 98; RESP 18; TEMP 97.6; O2SAT 99
[2024-05-14] VITALS (7 sets, daily range): BP systolic 116–166; BP diastolic 73–91; PULSE 92–117; RESP 17–20; TEMP 97.7–98.5; O2SAT 94–99
--- NOTE | 2024-05-14 12:57 | DVHPN2 ---
Reviewed: Care Plan, H&P, Labs, Medications, Previous Orders Changes from previous H/P or p: No Changes General: Per HPI Objective Vitals Vital Signs Date Time Temp Pulse Resp B/P (MAP) Pulse Ox O2 Delivery O2 Flow Rate FiO2 05/14/24 09:00 97.7 98 20 134/91 (105) 99 97.7 05/14/24 08:05 Room Air* 0 21 Intake/Output Intake and Output 05/14/24 07:00 Intake Total 3150 ml Balance 3150 ml Intake Oral 3150 ml # Voids 7 # Bowel Movements 1 General Appearance: Alert, Oriented X3, Cooperative, No acute distress, Other (Obese) HEENT: Atraumatic, PERRLA Neck: Carotid [place] Lungs: Clear to auscultation, Normal air movement Cardiovascular: Normal S1, Normal S2 Abdomen: Normal bowel sounds Musculoskeletal: Normal sensory function, Normal motor function Neuro: Normal gait, Normal speech Psych/Mental Status: Mental status NL, Mood NL Medications Current Medications Medications Dose Ordered Sig/Quynh Route Start Time Stop Time Status Last Admin Dose Admin Temazepam 15 mg QHSP PRN PO 05/10/24 19:15 05/10/24 22:26 15 MG Ondansetron HCl 4 mg Q4HP PRN IV 05/10/24 19:15 Nitroglycerin 0.4 mg Q5MINP PRN SL 05/10/24 19:15 Morphine Sulfate 2 mg Q30M PRN IV 05/10/24 19:15 Dextrose 50 ml UD PRN IV 05/11/24 12:15 Diagnostic Test (Pha) 1 strip IQ4HR 05/12/24 04:00 05/14/24 12:16 1 STRIP Insulin Human Regular IQ4HR SC 05/12/24 04:00 05/14/24 12:17 12 UNITS Insulin Glargine 20 units DAILY SC 05/12/24 10:00 05/14/24 08:50 20 UNITS Atorvastatin Calcium 40 mg HS PO 05/12/24 22:00 05/13/24 21:21 40 MG Laboratory Results Laboratory Tests 05/11/24 04:15 05/11/24 12:09 Urinalysis Test 05/10/24 16:15 Urine Color Colorless (Yellow) Urine Clarity Clear (Clear) Urine pH 5.0 (5.0-9.0) Urine Specific [place] 1.031 (1.001-1.035) Urine Protein Trace (Negative) H Urine Ketones 4+ (Negative) H Urine Blood Negative /uL (Negative) Urine Nitrite Negative (Negative) Urine Bilirubin Negative (Negative) Urine Urobilinogen Normal mg/dL (Negative) Urine Leukocyte Esterase Negative /uL (Negative) Urine RBC None seen /hpf (0 - 3) Urine WBC <1 /hpf (0 - 3) Urine Squamous Epithelial Cells None seen /hpf (<5) Urine Bacteria None seen /hpf (None Seen) Urine Mucus Few (None Seen) Urine Glucose 4+ mg/dL (Normal) H Labs and/or images reviewed: Labs reviewed by me, Image(s) reviewed by me Assessment/Plan Assessment/Plan Covering for nurse practitioner Abran Monk -diabetic ketoacidosis -diabetes mellitus, new diagnosis -obesity -sirs response, no organ dysfunction -acute kidney injury, probable vasomotor nephropathy -hyperkalemia Continue current management Plan discussed with: Patient Date of Service: May 13, 2024 Billing Provider: CAMPOS LANDRUM MD Common Visit Codes: [id number] INP/OBS CARE(HIGH) CAMPOS LANDRUM MD May 14, 2024 12:57
--- NOTE | 2024-05-14 13:02 | DVHPN2 ---
Reviewed: Care Plan, H&P, Labs, Medications, Previous Orders Changes from previous H/P or p: No Changes General: Per HPI Objective Vitals Vital Signs Date Time Temp Pulse Resp B/P (MAP) Pulse Ox O2 Delivery O2 Flow Rate FiO2 05/14/24 09:00 97.7 98 20 134/91 (105) 99 97.7 05/14/24 08:05 Room Air* 0 21 Intake/Output Intake and Output 05/14/24 07:00 Intake Total 3150 ml Balance 3150 ml Intake Oral 3150 ml # Voids 7 # Bowel Movements 1 General Appearance: Alert, Oriented X3, Cooperative, No acute distress, Other (Obese) HEENT: Atraumatic, PERRLA Neck: Carotid [place] Lungs: Clear to auscultation, Normal air movement Cardiovascular: Normal S1, Normal S2 Abdomen: Normal bowel sounds Musculoskeletal: Normal sensory function, Normal motor function Neuro: Normal gait, Normal speech Psych/Mental Status: Mental status NL, Mood NL Medications Current Medications Medications Dose Ordered Sig/Quynh Route Start Time Stop Time Status Last Admin Dose Admin Temazepam 15 mg QHSP PRN PO 05/10/24 19:15 05/10/24 22:26 15 MG Ondansetron HCl 4 mg Q4HP PRN IV 05/10/24 19:15 Nitroglycerin 0.4 mg Q5MINP PRN SL 05/10/24 19:15 Morphine Sulfate 2 mg Q30M PRN IV 05/10/24 19:15 Dextrose 50 ml UD PRN IV 05/11/24 12:15 Diagnostic Test (Pha) 1 strip IQ4HR 05/12/24 04:00 05/14/24 12:16 1 STRIP Insulin Human Regular IQ4HR SC 05/12/24 04:00 05/14/24 12:17 12 UNITS Insulin Glargine 20 units DAILY SC 05/12/24 10:00 05/14/24 08:50 20 UNITS Atorvastatin Calcium 40 mg HS PO 05/12/24 22:00 05/13/24 21:21 40 MG Laboratory Results Laboratory Tests 05/11/24 04:15 05/11/24 12:09 Urinalysis Test 05/10/24 16:15 Urine Color Colorless (Yellow) Urine Clarity Clear (Clear) Urine pH 5.0 (5.0-9.0) Urine Specific [place] 1.031 (1.001-1.035) Urine Protein Trace (Negative) H Urine Ketones 4+ (Negative) H Urine Blood Negative /uL (Negative) Urine Nitrite Negative (Negative) Urine Bilirubin Negative (Negative) Urine Urobilinogen Normal mg/dL (Negative) Urine Leukocyte Esterase Negative /uL (Negative) Urine RBC None seen /hpf (0 - 3) Urine WBC <1 /hpf (0 - 3) Urine Squamous Epithelial Cells None seen /hpf (<5) Urine Bacteria None seen /hpf (None Seen) Urine Mucus Few (None Seen) Urine Glucose 4+ mg/dL (Normal) H Labs and/or images reviewed: Labs reviewed by me, Image(s) reviewed by me Assessment/Plan Assessment/Plan Covering for nurse practitioner Abran Monk -acute diabetic ketoacidosis -uncontrolled type 1 diabetes mellitus, new diagnosis A1c 14 -obesity Systemic inflammatory response syndrome -acute kidney injury, probable vasomotor nephropathy, improving -hyperkalemia Continue current management Diabetic education Plan discussed with: Patient Date of Service: May 14, 2024 Billing Provider: CAMPOS LANDRUM MD Common Visit Codes: [id number] INP/OBS CARE(HIGH) CAMPOS LANDRUM MD May 14, 2024 13:02
[2024-05-15] VITALS (8 sets, daily range): BP systolic 112–133; BP diastolic 67–85; PULSE 97–120; RESP 17–19; TEMP 97.8–98.8; O2SAT 96–100
[2024-05-15] MEDS: INSULIN LANTUS (GLARGINE) 1 /0.01ml (100units/ml) SC SCH (10:21)
[2024-05-15] MEDS ORDERED: INSU1INJ19 SC (11:02)
[2024-05-15] MEDS ORDERED: ATOR40TA52 PO (11:02)
[2024-05-15] MEDS ORDERED: INSU100I46 IJ (11:02)
[2024-05-15 11:03] LABS: Potassium 3.6 mmol/L (3.5-5.1)
[2024-05-15 11:04] LABS: Anion Gap 11 (5-15); Carbon Dioxide 24 mmol/L (20-31)
[2024-05-15 11:05] LABS: Calcium 9.2 mg/dL (8.7-10.4)
--- NOTE | 2024-05-15 11:08 | DVHDS2 ---
Discharge Summary Date of Admission May 10, 2024 at 19:14 Date of Discharge: May 15, 2024 Admitting Diagnosis Diabetic ketoacidosis Labs/Diagnostic Data: Laboratory Results Test 05/15/24 10:37 05/15/24 08:34 05/11/24 04:15 05/10/24 18:25 POC Glucose 230 mg/dl (70-106) White Blood Count 9.7 10^3/uL (4.4-10.8) Red Blood Count 4.89 10^6/uL (4.5-5.90) Hemoglobin 14.6 g/dL (13.5-17.5) Hematocrit 42.1 % (41.0-53.0) Mean Corpuscular Volume 86.1 fL (80.0-100.0) Mean Corpuscular Hemoglobin 29.8 pg (28.0-32.0) Mean Corpuscular Hemoglobin Concent 34.6 g/dL (32.0-36.0) Red Cell Distribution Width 14.2 % (11.8-14.3) Platelet Count 218 10^3/uL (140-450) Mean Platelet Volume 10.2 fL (6.9-10.8) Neutrophils (%) (Auto) 57.9 % (37.0-80.0) Lymphocytes (%) (Auto) 33.5 % (10.0-50.0) Monocytes (%) (Auto) 6.0 % (0.0-12.0) Eosinophils (%) (Auto) 2.0 % (0.0-7.0) Basophils (%) (Auto) 0.6 % (0.0-2.0) Neutrophils # (Auto) 5.6 10 ^3/uL (1.6-8.6) Lymphocytes # (Auto) 3.3 10 ^3/uL (0.4-5.4) Monocytes # (Auto) 0.6 10 ^3/uL (0-1.3) Eosinophils # (Auto) 0.2 10 ^3/uL (0-0.8) Basophils # (Auto) 0.1 10 ^3/uL (0-0.2) Nucleated Red Blood Cells 0.0 % Hemoglobin A1c > 14.0 % A1C (<5.7) Total Bilirubin 0.6 mg/dL (0.2-1.0) Aspartate Amino Transferase (AST) 56 U/L (13-40) Alanine Aminotransferase (ALT) 73 U/L (7-40) Alkaline Phosphatase 124 U/L (46-116) Total Protein 6.6 g/dL (5.7-8.2) Albumin 4.2 g/dL (3.2-4.8) Triglycerides Level 396 mg/dL (< 150) Cholesterol Level 112 mg/dL (< 200) LDL Cholesterol 29 mg/dL (< 100) HDL Cholesterol 22 mg/dL (40-59) Troponin I High Sensitivity < 3 ng/L (</=54) Test 05/10/24 16:50 05/10/24 16:15 05/10/24 15:30 Blood Gas Specimen Type Arterial Blood Gas Sample Site Right radial Blood Gas Patient Temperature 37.0 Arterial Blood Date Drawn [id number] Arterial Blood pH 7.270 (7.350-7.450) Arterial Blood Partial Pressure CO2 19.9 mmHg (35.0-48.0) Arterial Blood Partial Pressure O2 99.6 mmHg (83.0-108.0) Arterial Blood HCO3 8.9 mmol/L (21.0-28.0) Arterial Blood Oxygen Saturation 97.2 % (94.0-98.0) Arterial Blood Base Excess -15.1 mmol/L (-2.0-3.0) Arterial Blood Oxyhemoglobin 96.1 % (94.0-98.0) Arterial Blood Carboxyhemoglobin 0.4 % (0.5-1.5) Arterial Blood Methemoglobin 0.7 % (0.0-1.5) Sourav Test Yes Blood Gas Total Hemoglobin 18.00 g/dL (13.5-17.5) Blood Gas Modality Room air FiO2 % 21.0 Blood Gas Critical Value Read Back Yes Blood Gas Notified Whom Dr. rena cook Blood Gas Notified Time [id number] Blood Gas Notified By Senior Qualitative Researcher kaushik askew Urine Color Colorless (Yellow) Urine Clarity Clear (Clear) Urine pH 5.0 (5.0-9.0) Urine Specific [place] 1.031 (1.001-1.035) Urine Protein Trace (Negative) Urine Ketones 4+ (Negative) Urine Blood Negative /uL (Negative) Urine Nitrite Negative (Negative) Urine Bilirubin Negative (Negative) Urine Urobilinogen Normal mg/dL (Negative) Urine Leukocyte Esterase Negative /uL (Negative) Urine RBC None seen /hpf (0 - 3) Urine WBC <1 /hpf (0 - 3) Urine Squamous Epithelial Cells None seen /hpf (<5) Urine Bacteria None seen /hpf (None Seen) Urine Mucus Few (None Seen) Urine Glucose 4+ mg/dL (Normal) Serum Osmolality 327 mOsm/kg (278-298) Beta-Hydroxybutyric Acid > 4.500 mmol/L (< 0.4) Other Laboratory Tests 05/11/24 04:15 Brief Hx & Hospital Course: History of Present Illness 23-year-old male with no previous medical problems presents for evaluation of palpitations shortness for breath. Patient reports symptoms ongoing intermittently for the past two weeks. He states that today symptoms were more constant associated polydipsia polyuria. He also reports fatigue and generalized weakness. no Other acute complaints reported. Course of hospitalization: Patient was started on aggressive IV hydration, insulin drip, with the patient being transitioned to regular insulin sliding scale as well as long-acting insulin. Patient had electrolytes repleted. Patient was found to have a hemoglobin A1c greater than 14. Patient reports no previous medical history. Patient was has been given diabetic education with respect to dietary restrictions as well as how to perform glucose monitoring and insulin injection. Sugars have been somewhat difficult to control over the past 48 hours, with the primary nurse stating that the girlfriend has been bringing in outside food. Discussion was made with the patient to be compliant with his diet. Patient will be discharged home with Lantus 30 units q.h.s. as well as regular insulin sliding scale as delineated in medication reconciliation. He will also be continued on atorvastatin 40 mg q.h.s.. Patient will follow up with the discharge Clinic in one week as instructed to obtain a PCP as soon as possible. Patient verbalizes an understanding. All questions answered. Physical examination General: Alert and Oriented x3. No acute distress. Well-nourished. Obese Eyes: EOMI. Anicteric. HENT: Moist mucous membranes. Lungs: Clear to auscultation bilaterally. No accessory muscle use. Cardiovascular: Regular rate and rhythm. No murmur. No JVD. Abdomen: Soft, non-tender and non-distended. No palpable masses. Extremities: No edema. Non-tender. Skin: No rashes or lesions. Warm. Neurologic: No focal neurological deficits. CN II-XII grossly intact, but not individually tested. Psychiatric: Cooperative. Appropriate mood and affect. Total time spent with patient discussing and formulating plan of care: 35 minutes. This medical document was created using an electronic medical record system with [employer] system. Although this document has been carefully reviewed, there may still be some phonetic and typographical errors. These areas are purely typographical due to imperfections of the software programs, and do not reflect any compromise in the patient's medical care. Condition at Discharge: Guarded Final Diagnosis/Problems List Diabetic ketoacidosis Secondary Diagnosis: Obesity Hypertriglyceridemia Dietary noncompliant Discharge Disposition: Home Discharge Instruct/Medications Diet: Consistent carbohydrate Activity: No Restrictions, As Tolerated Follow Up/Referral: Discharge Clinic in one week Medications: Lantus 30 units q.h.s. Regular insulin sliding scale: Blood sugar 150 to 250: 2 units Blood sugar 251 to 350: 4 units Blood sugar 351 to 400: 6 units Blood sugar 401 and above: 8 units and go to emergency room Atorvastatin 40 mg qHS 36 Discharge Statement: "Patient was advised to return to the ER or call 911 if any headaches, dizziness, shortness of breath, chest pain, abdominal pain, bleeding, fevers, or worsening of medical condition. Patient was counseled about treatment plan, medications, possible side effects, patientverbalized understanding. All questions were answered to the best of my ability. This discharge took greater then 30 minutes in planning, reviewing documentation, counseling the patient, and discussing with other team members." ASSESSMENT ASSESSMENT Assessment Diabetic ketoacidosis Date of Service: May 15, 2024 Billing Provider: JOSE D SANTIAGO NP Common Visit Codes: [id number] DISCH DAY >30min JOSE D SANTIAGO NP May 15, 2024 11:08
[2024-05-15 11:09] LABS: BUN/Creatinine Ratio 5.6 (10.0-20.0)
[2024-05-15] MEDS ORDERED: LANC-268 XX (11:09)
[2024-05-15] MEDS ORDERED: BLOO1KIT60 XX (11:09)
[2024-05-15 11:14] LABS: Blood Urea Nitrogen 6 mg/dL (9-23); Chloride 97 mmol/L (98-107); Sodium 132 mmol/L (136-145)
[2024-05-15 11:15] LABS: Glucose 449 mg/dL (74-106)
[2024-05-16 01:00] VITALS: BP 130/82; PULSE 115; RESP 20; TEMP 98.6; O2SAT 99
[2024-05-16 05:00] VITALS: BP 126/78; PULSE 110; RESP 18; TEMP 98.8; O2SAT 96
[2024-05-16 08:00] VITALS: PULSE 79; RESP 16; O2SAT 96
[2024-05-16 08:25] VITALS: BP 141/92; PULSE 104; RESP 20; TEMP 98.9; O2SAT 96
[2024-05-16] MEDS ORDERED: INSU1INJ19 SC (08:45)
[2024-05-16] MEDS ORDERED: INSULIN LANTUS (GLARGINE) 1 /0.01ml (100units/ml) SC SCH (10:00)
--- NOTE | 2024-05-16 10:32 | DVHPN2 ---
Subjective Patient denies any symptoms. Reviewed: Care Plan, H&P, Labs, Medications, Previous Orders Changes from previous H/P or p: No Changes General: Per HPI Objective Vitals Vital Signs Date Time Temp Pulse Resp B/P (MAP) Pulse Ox O2 Delivery O2 Flow Rate FiO2 05/16/24 08:25 98.9 104 20 141/92 (108) 96 98.9 05/15/24 20:00 Room Air* 0 21 Intake/Output Intake and Output 05/16/24 07:00 Intake Total 2900 ml Output Total 300 ml Balance 2600 ml Intake Oral 2900 ml Output Urine Total 300 ml # Voids 4 General Appearance: Alert, Oriented X3, Cooperative, No acute distress, Other (Obese) HEENT: Atraumatic, PERRLA Neck: Carotid [place] Lungs: Clear to auscultation, Normal air movement Cardiovascular: Normal S1, Normal S2 Abdomen: Normal bowel sounds Musculoskeletal: Normal sensory function, Normal motor function Neuro: Normal gait, Normal speech Psych/Mental Status: Mental status NL, Mood NL Medications Current Medications Medications Dose Ordered Sig/Quynh Route Start Time Stop Time Status Last Admin Dose Admin Temazepam 15 mg QHSP PRN PO 05/10/24 19:15 05/10/24 22:26 15 MG Ondansetron HCl 4 mg Q4HP PRN IV 05/10/24 19:15 Nitroglycerin 0.4 mg Q5MINP PRN SL 05/10/24 19:15 Morphine Sulfate 2 mg Q30M PRN IV 05/10/24 19:15 Dextrose 50 ml UD PRN IV 05/11/24 12:15 Diagnostic Test (Pha) 1 strip IQ4HR 05/12/24 04:00 05/16/24 07:59 1 STRIP Insulin Human Regular IQ4HR SC 05/12/24 04:00 05/16/24 08:40 8 UNITS Atorvastatin Calcium 40 mg HS PO 05/12/24 22:00 05/15/24 21:19 40 MG Insulin Glargine 40 units DAILY SC 05/17/24 10:00 Laboratory Results Laboratory Tests 05/11/24 04:15 05/15/24 10:37 Chemistry Test 05/15/24 10:37 Calcium Level 9.2 mg/dL (8.7-10.4) Urinalysis Test 05/10/24 16:15 Urine Color Colorless (Yellow) Urine Clarity Clear (Clear) Urine pH 5.0 (5.0-9.0) Urine Specific [place] 1.031 (1.001-1.035) Urine Protein Trace (Negative) H Urine Ketones 4+ (Negative) H Urine Blood Negative /uL (Negative) Urine Nitrite Negative (Negative) Urine Bilirubin Negative (Negative) Urine Urobilinogen Normal mg/dL (Negative) Urine Leukocyte Esterase Negative /uL (Negative) Urine RBC None seen /hpf (0 - 3) Urine WBC <1 /hpf (0 - 3) Urine Squamous Epithelial Cells None seen /hpf (<5) Urine Bacteria None seen /hpf (None Seen) Urine Mucus Few (None Seen) Urine Glucose 4+ mg/dL (Normal) H Labs and/or images reviewed: Labs reviewed by me, Image(s) reviewed by me Assessment/Plan Assessment/Plan Impression: -diabetic ketoacidosis -diabetes mellitus, new diagnosis -obesity -sirs response, no organ dysfunction -acute kidney injury, probable vasomotor nephropathy -hyperkalemia Plan: -events: Continue difficulties controlling patient's blood sugars. I myself found the patient have outside food on his backpack including high sugary and carbohydrate foods. Long discussion made with the patient regarding the need to be compliant with his diet. Once patient was blood sugars are under 200 consecutively, patient will be discharged home. Home Lantus has already been increased to accommodate for the patient's persistent hyperglycemia. -continue q.4 hours sliding scale coverage with aggressive scale. Increase Lantus -decrease to low carbohydrate diet -dietary consultation -reassess for discharge tomorrow once blood sugars have improved. Total time spent with patient discussing and formulating plan of care: 35 minutes. This medical document was created using an electronic medical record system with [employer] dictation system. Although this document has been carefully reviewed, there may still be some phonetic and typographical errors. These areas are purely typographical due to imperfections of the software programs, and do not reflect any compromise in the patient's medical care. Plan discussed with: Patient, Other (RN) My Orders Orders - JOSE D SANTIAGO NP Procedure Category Date Status Time Communication Order ORDERS 05/15/24 Transmitted 10:51 Discharge DISCHARGE 05/15/24 Transmitted 10:51 * Skip Hoist Operator CONS 05/15/24 Transmitted Consult Insulin Lantus PHA 05/17/24 In Process (Glargine) (Lantus) 10:00 Date of Service: May 16, 2024 Billing Provider: JOSE D SANTIAGO NP Common Visit Codes: [id number] INP/OBS CARE(HIGH) JOSE D SANTIAGO NP May 16, 2024 10:32
[2024-05-16] MEDS: INSULIN LANTUS (GLARGINE) 1 /0.01ml (100units/ml) SC ONE (10:45)
[2024-05-16 12:39] VITALS: BP 140/81; PULSE 111; RESP 20; TEMP 98.5; O2SAT 97
[2024-05-16] MEDS: InsuLIN REG 1unit/0.01ml Soln (100units/ml) SC ONE (14:58)
[2024-05-16 16:33] VITALS: BP 111/75; PULSE 110; RESP 20; TEMP 98.9; O2SAT 97
[2024-05-17] MEDS ORDERED: INSULIN LANTUS (GLARGINE) 1 /0.01ml (100units/ml) SC SCH (10:00)
== END 2024-05-16 18:05 | disposition home or self-care (01) | DRG 420 ==
LOC: ER 14:30 → TELE 19:14 → TELE-WESTW 05-11 15:44 → WEST WING 05-12 05:16
PROVIDERS: ADMIT Nurse Practitioner; ATTEND Nurse Practitioner Acute Care
DX: E10.10 Type 1 diabetes mellitus with ketoacidosis without coma (principal); N17.0 Acute kidney failure with tubular necrosis; R65.10 Systemic inflammatory response syndrome (SIRS) of non-infectious origin without acute organ dysfunction; E66.9 Obesity, unspecified; E86.0 Dehydration; E87.5 Hyperkalemia; Z79.4 Long term (current) use of insulin; Z91.119 Patient's noncompliance with dietary regimen due to unspecified reason; E78.1 Pure hyperglyceridemia; Z68.38 Body mass index [BMI] 38.0-38.9, adult
CPT/HCPCS: 36415; 36600; 71045; 80048; 80053; 80061; 81001; 82010; 82805; 82962; 83036; 83930; 84484; 85025; 93005; 96361; 96365; 96372; 96375; 99291; G0378; J1815